=== PATIENT | female | born 1980 | race Caucasian/White ===

== ENCOUNTER 2023-07-21 10:41 | Emergency (ER) | payer OTHER, SELFPAY ==
--- NOTE | 2023-07-21 10:44 | ED.URI ---
HPI - URI/Sore Throat General Chief Complaint: Upper Respiratory Infection Stated Complaint: Cold symptoms;Fever Time Seen by Provider: 07/21/23 10:43 Source: patient Mode of arrival: ambulatory Limitations: no limitations History of Present Illness HPI Narrative: Patient is a 43-year-old female who presents with worsening sinus congestion and pressure along with ear fullness and persistent cough. Patient states symptoms have been present for 3-4 weeks. Patient has tried multiple eved-svm-fgcdaen medications with no relief. Denies any fever, chills, nausea, vomiting, diarrhea or sore throat. Related Data Home Medications Medication Instructions Recorded Confirmed buspirone 15 mg tablet 15 mg PO BID 07/21/23 07/21/23 escitalopram oxalate 10 mg tablet 10 mg PO DAILY 07/21/23 07/21/23 Allergies Allergy/AdvReac Type Severity Reaction Status Date / Time Sulfa (Sulfonamide Allergy Intermediate Blister Unverified 07/21/23 10:52 Antibiotics) Review of Systems Review of Systems: All systems reviewed & are unremarkable except as noted in HPI and below Constitutional: Constitutional: Denies body ache(s), Denies chills, Denies fatigue, Denies fever(s), Denies headache(s), Denies malaise and Denies weakness Eyes: Eyes: Denies blurry vision, Denies itchy eyes and Denies loss of vision ENT: Denies otalgia, Denies headache(s), Reports nasal congestion, Denies sinus pain, Reports sinus pressure and Denies sore throat Cardiovascular: Cardiovascular: Denies chest pain, Denies irregular heart rhythm and Denies dyspnea Respiratory: Respiratory: Reports cough and Denies dyspnea Gastrointestinal: Gastrointestinal: Denies abdominal pain, Denies diarrhea, Denies nausea and Denies vomiting Musculoskeletal: Musculoskeletal: Denies back pain, Denies myalgias and Denies arthralgias Integumentary/Breasts: Skin/Breast: Denies pruritus and Denies rash Neurologic: Denies headache(s), Denies loss of vision and Denies weakness Psychiatric: Psychiatric: Reports no additional psychiatric complaints Endocrine: Endocrine: Denies fatigue Allergic/Immunologic: Allergic/Immunologic: Denies itchy eyes PMFSH Comments At time of signature, agree with nursing past medical, surgical, social and family history. There is no relevant family history pertinent to the presenting complaint. Exam Const: General: cooperative, healthy appearing, comfortable, no acute distress and well nourished Nutritional Appearance: well nourished Orientation/consciousness: patient oriented x3 Limitations: no limitations HENMT: Head: normal to inspection, normocephalic and atraumatic Ears: hearing grossly normal bilaterally, external ears normal, TM's normal bilaterally, EAC's normal and no periauricular adenopathy Face/Nose/Sinus: Normal external nose present, Abnormal mucous membranes and turbinates present erythematous bilateral and diffuse, normal facial exam, face symmetric and Facial tenderness on exam of face and sinuses Face and sinus: normal facial exam and face symmetric Mouth: Yes Normal oral and palatal mucosa present, Yes lip normal, Yes tongue normal, Yes Normal salivary glands and ducts present, Yes oropharynx normal and Yes moist mucous membranes Teeth and gingiva: dentition normal Throat: posterior oropharynx normal, tonsils normal and uvula midline Eyes: General: appearance normal, both eyes and all related structures Alignment and Position: alignment normal and position normal Periorbital: periorbital findings normal Eyelids: eyelids normal Pupils: Equal, round and reactive pupils present Neck: Neck: normal visual inspection, full ROM, no lymphadenopathy and supple Chest: Chest palpation & inspection: normal inspection of the chest and normal palpation of entire chest wall Resp: Effort & Inspection: normal respiratory effort and able to speak in complete sentences Auscultation: clear to auscultation bilaterally, no crackles, no rales, no rhonch
[2023-07-21 10:53] VITALS: BP 127/79; PULSE 66; RESP 16; TEMP 37; O2SAT 100
== END 2023-07-21 11:25 | disposition home or self-care (01) ==
PROVIDERS: Emergency Provider Nurse Practitioner Family
DX: J06.9 Acute upper respiratory infection, unspecified (principal); R05.9 Cough, unspecified
CPT/HCPCS: 99203; G0463

== ENCOUNTER 2024-07-12 12:40 | Emergency (ER) | payer OTHER, SELFPAY ==
--- NOTE | ~2024-07-12 | XR_ITS ---
XR ankle LT min 3V Ordering provider: Adelaide Zacarias NP History: . pain and swelling L ankle . Comparison: None. FINDINGS: BONES: No acute fracture or dislocation. JOINT SPACES: The ankle mortise is normal. SOFT TISSUES: Normal. IMPRESSION: No acute osseous abnormality left ankle. Reviewed, dictated and finalized at location A. [employer] REPRESENT[employer]IVE
[2024-07-12 13:18] VITALS: BP 121/92; PULSE 74; RESP 16; TEMP 36.3; O2SAT 99
--- NOTE | 2024-07-12 13:49 | ED_ITS ---
HPI - Extremity Injury (Lower) General Chief Complaint: Extremity Injury, Lower Stated Complaint: INJURED L ANKLE Time Seen by Provider: 07/12/24 13:49 Source: patient Mode of arrival: ambulatory Limitations: no limitations History of Present Illness HPI Narrative: 44-year-old female presents with complaint of pain to left ankle. Patient reports injury doing in [employer] class 1 week ago. Reports that she felt ankle pop and snap. Has been wearing ankle brace at home. States left ankle feels weak, continues to have pain. Range of motion and distal neurovascularly intact. All systems reviewed and negative except as noted above. Related Data Home Medications Medication Instructions Recorded Confirmed buspirone 15 mg tablet 15 mg PO BID 07/21/23 07/12/24 spironolactone 100 mg tablet 100 mg PO DAILY 07/12/24 07/12/24 Allergies Allergy/AdvReac Type Severity Reaction Status Date / Time Sulfa (Sulfonamide Allergy Intermediate Blister Unverified 07/12/24 13:14 Antibiotics) Review of Systems Review of Systems: CONSTITUTIONAL: Denies fever, chills, or sweats. EYES: Denies visual changes, redness, or discharge. ENT: Denies rhinorrhea, congestion, sore throat, or otalgia. CARDIOVASCULAR: Denies chest pain, palpitations, or edema. RESPIRATORY: Denies cough or dyspnea. GASTROINTESTINAL: Denies abdominal pain, nausea, vomiting, or diarrhea. GENITOURINARY: Denies dysuria or hematuria. SKIN: Denies rash or itching. MUSCULOSKELETAL: reports pain and swelling to L ankle NEUROLOGIC: Denies headache, numbness, or weakness. PSYCHIATRIC: Denies anxiety or depression. All other systems reviewed are negative, except as documented in HPI. PMFSH Comments At time of signature, agree with nursing past medical, surgical, social and fam sj history. There is no relevant family history pertinent to the presenting complaint. Exam Narrative: GENERAL: This is a well-nourished, well-developed patient, in no apparent distress. HEAD: normocephalic, atraumatic. EYES: PERRL. Sclera clear/white. Vision is grossly intact. EARS: External ears normal NOSE: External nose normal NECK: Neck supple, non-tender without lymphadenopathy, masses or thyromegaly. CARDIOVASCULAR: Regular rate and rhythm without murmurs, gallops, or rubs. RESPIRATORY: Clear to auscultation. Breath sounds equal bilaterally. No wheezes, rales, or rhonchi. SKIN: warm, Dry, intact with no suspicious lesions or rash, good texture and turgor. NEURO: awake, alert, and oriented to person, place and time. There were no obvious focal neurologic abnormalities. EXTREMITIES: Bruising and swelling to lateral aspect left ankle. tenderness to L ATFL. ROM and distal NV intact. No instability. Course Course Level of Care: Express Care Visit Vital Signs Vital signs: Vital Signs Temperature 36.3 C L 07/12/24 13:18 Pulse Rate 74 07/12/24 13:18 Respiratory Rate 16 07/12/24 13:18 Blood Pressure 121/92 H 07/12/24 13:18 Pulse Oximetry 99 07/12/24 13:18 Temperature 36.3 C L 07/12/24 13:18 Pulse Rate 74 07/12/24 13:18 Respiratory Rate 16 07/12/24 13:18 Blood Pressure 121/92 H 07/12/24 13:18 Pulse Oximetry 99 07/12/24 13:18 Reviewed MDM - Extremity Injury (Lower) MDM Narrative Medical decision making narrative: X-ray negative for fracture. Discussed results with patient. When she continue wearing ankle brace. Elevate, rest. Follow-up with PCP if pain not improving. Patient is aware of diagnosis, understands and agrees to treatment plan. Anticipatory guidance given. Patient agrees to follow-up as directed and is aware of reasons to seek care at the emergency department. Portions of this record may have been created with voice recognition software Differential Diagnosis Differential diagnosis: Likely ankle sprain and strain and ankle fracture Imaging Data My impression: Agree with radiologist Radiologist's impression: XR ankle LT min 3V Ordering provider: Adelaide Zacarias NP History: . pain and swelling L ankle . Comparison: None. FINDINGS: BONES: No acute fracture or dislocation. JOINT SPACES: The ankle mortise is normal. SOFT TISSUES: Normal. IMPRESSION: No acute osseous abnormality left ankle. Discharge Plan Discharge Clinical Impression: Left ankle sprain Qualifiers: Encounter type: initial encounter Involved ligament of ankle: unspecified ligament Qualified Code(s): S93.402A - Sprain of unspecified ligament of left ankle, initial encounter Patient Disposition: Home, Self-Care Condition: Stable Instructions: Antibiotic Form, Ankle Sprain (ED) Additional Instructions: The x-ray of your left ankle was negative for fracture. Take ibuprofen or Tylenol every 6-8 hours as needed for pain. Continue to wear ankle brace for support. Elevate when at rest. Avoid activities that increase pain to left ankle. If pain not improving in the next 2-3 weeks follow-up with your primary care physician. If your ankle is feeling weak or unstable you may need an MRI. Prescriptions: No Action buspirone 15 mg tablet 15 mg PO BID (DME) Philip MV Spacer See Rx Instructions .Route Qty: 1 0RF Rx Instructions: As directed spironolactone 100 mg tablet 100 mg PO DAILY Follow-up/Referrals: [facility], [Primary Care Provider] - Time of Disposition: 14:20
== END 2024-07-12 14:23 | disposition home or self-care (01) ==
PROVIDERS: Emergency Provider Nurse Practitioner Family
DX: S93.402A Sprain of unspecified ligament of left ankle, initial encounter (principal); X58.XXXA Exposure to other specified factors, initial encounter; Y93.75 Activity, martial arts
CPT/HCPCS: 73610; 99213; G0463

== ENCOUNTER 2024-10-17 18:33 | Emergency (ER) | payer OTHER, SELFPAY ==
--- NOTE | 2024-10-17 18:34 | ED.DENTAL ---
HPI - Dental/Oral General Chief complaint: Dental/Oral Stated complaint: Tooth Pain Time Seen by Provider: 10/17/24 18:34 Source: patient Mode of arrival: ambulatory Limitations: no limitations History of Present Illness HPI Narrative: Marissa is a 44-year-old female patient presenting to the clinic today with complaints of left upper gum/sinus/dental pain x2 3 days. She reports she was sick last week and thinks she may have a sinus infection but she is having a lot of pain to the left upper gums and dental pain. Denies any fevers, chills, or body aches. Has been applying Orajel to the affected area that alleviating some pain. Has been taking Tylenol Motrin that has not helped her pain. Related Data Home Medications ?Medication ?Instructions ?Recorded ?Confirmed ?Last Taken ?Type buspirone 15 mg tablet 15 mg PO BID 07/21/23 07/12/24 Unknown History spironolactone 100 mg tablet 100 mg PO DAILY 07/12/24 07/12/24 Unknown History Allergies Allergy/AdvReac Type Severity Reaction Status Date / Time Sulfa (Sulfonamide Allergy Intermediate Blister Unverified 07/12/24 13:14 Antibiotics) Review of Systems Review of Systems: Pertinent positives per HPI. Patient denies any fever, chills, rash, headache, visual changes, dizziness, cough, runny nose, sore throat, shortness of breath, chest pain, palpitations, nausea, vomiting, diarrhea, constipation, abdominal pain, or any urinary issues. PMFSH Comments At the time of my signature, I reviewed and agree with the nursing past medical, surgical, social, and family history. There is no relevant family history pertinent to the patient complaint. Exam Narrative: General: Well-developed, well nourished, in no apparent distress Head: Normocephalic, atraumatic Eyes: Pupils equally round and reactive to light bilaterally, EOM intact, sclera and conjunctive clear, no discharge, lids normal Ears: TMs intact and clear, ear canals clear, no drainage, grossly hearing normal. Nose: Nares patent, clear discharge, moderate inflammation, left maxilla sinus tenderness. Mouth: Oropharynx without lesions or masses, good dentition, MMM. Tenderness to palpation over the premolars and molars on the left upper maxilla with mild gingival swelling Neck: Supple, trachea midline, no enlargement of anterior or posterior cervical nodes, no thyroid masses or goiter palpable. Cardio: Regular rate and rhythm, s1 and s2 normal, no murmur appreciated. Resp: Clear to auscultation bilaterally anteriorly and posteriorly, no rhonchi, rales, wheezing or rubs Course Course Emergency Course: Portions of this record may have been created with voice recognition software. Level of Care: Express Care Visit Vital Signs Vital signs: Vital Signs Temperature 36.3 C L 10/17/24 18:42 Pulse Rate 57 L 10/17/24 18:42 Respiratory Rate 18 10/17/24 18:42 Blood Pressure 124/85 10/17/24 18:42 Pulse Oximetry 100 10/17/24 18:42 Temperature 36.3 C L 10/17/24 18:42 Pulse Rate 57 L 10/17/24 18:42 Respiratory Rate 18 10/17/24 18:42 Blood Pressure 124/85 10/17/24 18:42 Pulse Oximetry 100 10/17/24 18:42 Vital signs reviewed MDM - Dental/Oral MDM Narrative Medical decision making narrative: At the time of visit patient is resting comfortably on the exam table. Patient appears to be nontoxic. Plan: I suspect patient has dental pain/probable sinusitis. Prescription for Augmentin was sent to the pharmacy. Supportive measures were discussed with the patient and they voiced understanding discharge instructions and agrees to treatment plan. Return precautions reviewed Differential Diagnosis Differential diagnosis: Likely gingival abscess, dental caries, toothache, dental abscess, fracture of tooth, aphthous ulcer and other (Sinusitis) Discharge Plan Discharge Clinical Impression: Toothache Patient Disposition: Home, Self-Care Condition: Stable Instructions: Antibiotic Form, Toothache (ED) Additional Instructions: May continue applying Orajel to the affected area to help alleviate pain Continue Tylenol/Motrin as needed for pain Take Augmentin as prescribed May apply cool or warm compress to the affected area to help alleviate pain Follow-up with your dentist as soon as possible Patient Language: Taiwanese Prescriptions: New amoxicillin-pot clavulanate 875-125 mg tablet 1 tablet PO Q12H 10 Days Qty: 20 0RF No Action buspirone 15 mg tablet 15 mg PO BID (DME) Aerochamber MV Spacer See Rx Instructions .Route Qty: 1 0RF Rx Instructions: As directed spironolactone 100 mg tablet 100 mg PO DAILY Follow-up/Referrals: UNKNOWN,DOCTOR [Non-Staff] - Time of Disposition: 18:44 Quality NIHSS Nursing Documentation ED NIHSS nursing documentation: reviewed/agree
[2024-10-17 18:42] VITALS: BP 124/85; PULSE 57; RESP 18; TEMP 36.3; O2SAT 100
== END 2024-10-17 18:52 | disposition home or self-care (01) ==
PROVIDERS: Emergency Provider Nurse Practitioner Family
DX: K08.89 Other specified disorders of teeth and supporting structures (principal)
CPT/HCPCS: 99213; G0463

== ENCOUNTER 2024-10-24 10:06 | Emergency (ER) | payer OTHER, SELFPAY ==
[2024-10-24 10:17] VITALS: BP 126/87; PULSE 65; RESP 16; TEMP 36.7; O2SAT 100
--- NOTE | 2024-10-24 10:22 | ED_ITS ---
HPI - General Adult General Chief complaint: Dental/Oral Stated complaint: facial pain/pressure Time Seen by Provider: 10/24/24 10:22 Source: patient Mode of arrival: ambulatory Limitations: no limitations History of Present Illness HPI narrative: 44-year-old female patient presents to the [facility] with complaints of left- sided facial pain. Patient states she was seen in the urgent care last week and was diagnosed and treated as a sinus infection with Augmentin. Patient states that the pain to the left cheek area has not gotten any better. Patient states that it almost feels like a nerve pain and itch goes from her left ear and shoots down her cheek. Patient states it can come and go intermittently. Denies fevers, body aches or chills. Patient states she has about 2 days left of the Augmentin. Patient states she was not given steroids at the time of treatment last weekend. Related Data Home Medications ?Medication ?Instructions ?Recorded ?Confirmed ?Last Taken ?Type buspirone 15 mg tablet 15 mg PO BID 07/21/23 07/12/24 Unknown History spironolactone 100 mg tablet 100 mg PO DAILY 07/12/24 07/12/24 Unknown History Allergies Allergy/AdvReac Type Severity Reaction Status Date / Time Sulfa (Sulfonamide Allergy Intermediate Blister Unverified 10/24/24 10:17 Antibiotics) Review of Systems Review of Systems: CONSTITUTIONAL: Denies fever, chills, or sweats. EYES: Denies visual changes, redness, or discharge. ENT: Denies rhinorrhea, congestion, sore throat, or otalgia. Positive left- sided facial pain from the ear across to the cheek. CARDIOVASCULAR: Denies chest pain, palpitations, or edema. RESPIRATORY: Denies cough or dyspnea. GASTROINTESTINAL: Denies abdominal pain, nausea, vomiting, or diarrhea. GENITOURINARY: Denies dysuria or hematuria. SKIN: Denies rash or itching. MUSCULOSKELETAL: Denies back pain, joint pain, or myalgia. NEUROLOGIC: Denies headache, numbness, or weakness. PSYCHIATRIC: Denies anxiety or depression. [facility] Past Medical History Medical History No significant past medical history Comments At the time of my signature I agree with nursing past medical history, surgical, social, and family history. There is no relevant family history pertinent to the presenting complaint. Exam Narrative: GENERAL: Well-appearing, well-nourished, and in no acute distress. HEAD: Normocephalic, atraumatic. EYES: PERRLA and EOMI. ENT: Nares clear, no rhinorrhea or epistaxis. Mucous membranes moist. Posterior pharynx with no erythema, tonsillar enlargement or exudates noted. No abno rmalities or obvious evidence of an infection to the palate or dental area of the mouth. Bilateral TMs are clear no erythema or foreign bodies the canal. No pain to the TMJ area on exam. NECK: Supple. No lymphadenopathy CHEST: Clear to auscultation. No respiratory distress. HEART: Regular rate and rhythm. No murmur heard. Normal peripheral pulses. ABDOMEN: Soft, nontender, nondistended, normal active bowel sounds. EXTREMITIES: Normal range of motion. No edema. SKIN: Warm, dry, no rash. NEURO: Alert and oriented x4, GCS 15. Cranial nerves II through XII grossly intact. No focal neurological deficits. Normal muscle strength and tone. Normal deep tendon reflexes. Negative Babinski, normal finger to nose coordination he had normal heel to saul glide. Speech is clear. Normal gait. Negative Romberg and no pronator drift Course Course Level of Care: Express Care Visit Vital Signs Vital signs: Vital Signs Temperature 36.7 C 10/24/24 10:17 Pulse Rate 65 10/24/24 10:17 Respiratory Rate 16 10/24/24 10:17 Blood Pressure 126/87 10/24/24 10:17 Pulse Oximetry 100 10/24/24 10:17 Temperature 36.7 C 10/24/24 10:17 Pulse Rate 65 10/24/24 10:17 Respiratory Rate 16 10/24/24 10:17 Blood Pressure 126/87 10/24/24 10:17 Pulse Oximetry 100 10/24/24 10:17 vital signs reviewed. Medical Decision Making MDM Narrative Medical decision making narrative: Discussed with patient that this could possibly be a trigeminal neuralgia or leftover inflammation due to any sinus infection that was treated. Discussed with her that we will go ahead and give her some steroids today to see if this improves the pain but I would highly recommend that she follow-up with her doctor and possibly a neurologist if this pain continues. Patient verbalized understanding denies any other questions or concerns at this time. Differential Diagnosis Differential Diagnosis: Differential diagnosis: Dental caries, periodontal disease, avulsed tooth, tooth infections, mandibular infection, Hermann's angiana, upper tooth infection, dry socket, gingivitis, acute necrotizing ulcerative gingivitis, sialolithiasis. Migraine, cluster headache, tension headache, sinusitis, dental infection, TMJ problems, pseudotumor cerebri, meningitis, encephalitis, giant cell arteritis, glaucoma, subarachnoid hemorrhage, subdural or epidural hematoma, intracranial bleed or tumor. Vital Signs Vital Signs: Vital Signs Temperature 36.7 C 10/24/24 10:17 Pulse Rate 65 10/24/24 10:17 Respiratory Rate 16 10/24/24 10:17 Blood Pressure 126/87 10/24/24 10:17 Pulse Oximetry 100 10/24/24 10:17 Temperature 36.7 C 10/24/24 10:17 Pulse Rate 65 10/24/24 10:17 Respiratory Rate 16 10/24/24 10:17 Blood Pressure 126/87 10/24/24 10:17 Pulse Oximetry 100 10/24/24 10:17 Critical Care Time Critical Care Time Critical Care Time: No Discharge Plan Discharge Clinical Impression: Left-sided face pain, Neuralgia Patient Disposition: Home, Self-Care Condition: Stable Instructions: Antibiotic Form, Trigeminal Neuralgia (ED) Additional Instructions: Trigeminal neuralgia is a problem with the large nerve that brings feeling to your face. It causes a sudden, sharp pain on one side of your face. Just touching your cheek or talking can set off shooting pain toward the ear, eye, or nostril. Some people have long periods when they do not have pain, and then it comes back. Some people have periods of pain often. But medicine or other treatment often can make the pain go away. If you keep having pain, surgery may help. Follow-up care is a parsons part of your treatment and safety.?Be sure to make and go to all appointments, and call your doctor or nurse advice line ([phone]?in most provinces and territories) if you are having problems. It's also a good idea to know your test results and keep a list of the medicines you take. How can you care for yourself at home? Write down when you have pain and what you were doing when it started. Try to find what causes the pain. Being in a cold wind, yawning, or shaving are examples. Avoid or limit these triggers if you can.Be safe with medicines. Take your medicines exactly as prescribed. Call your doctor or nurse advice line if you think you are having a problem with your medicine. You will get more details on the specific medicines your doctor prescribes. If you are not taking a prescription pain medicine, take an zviv-lir-vkwccuu medicine such as acetaminophen (Tylenol), ibuprofen (Advil, Motrin), or naproxen (Aleve). Read and follow all instructions on the label. Do not take two or more pain medicines at the same time unless the doctor told you to. Many pain medicines have acetaminophen, which is Tylenol. Too much acetaminophen (Tylenol) can be harmful.Reduce stress in your life. Ask your doctor about ways to relax. These may include breathing exercises and massage.Think about joining a support group with other people who have this problem. These groups can give comfort and information about what to do to feel better. Patient Language: [place] Prescriptions: New prednisone 10 mg tablets,dose pack See Rx Instructions .ROUTE .COMPLEX Qty: 48 0RF Rx Instructions: 50 mg x 3 days, 40 mg x 3 days, 30 mg x 3 days, 20 mg x 3 days, 10 mg x 3 days No Action buspirone 15 mg tablet 15 mg PO BID (DME) Aerochamber MV Spacer See Rx Instructions .Route Qty: 1 0RF Rx Instructions: As directed amoxicillin-pot clavulanate 875-125 mg tablet 1 tablet PO Q12H 10 Days Qty: 20 0RF spironolactone 100 mg tablet 100 mg PO DAILY Follow-up/Referrals: [place], [Primary Care Provider] - Time of Disposition: 10:32
== END 2024-10-24 10:34 | disposition home or self-care (01) ==
PROVIDERS: Emergency Provider Nurse Practitioner Family
DX: G50.1 Atypical facial pain (principal); M79.2 Neuralgia and neuritis, unspecified
CPT/HCPCS: 99213; G0463

== ENCOUNTER 2025-01-11 08:04 | Emergency (ER) | payer OTHER, SELFPAY ==
--- NOTE | 2025-01-11 08:06 | ED.URI ---
HPI - URI/Sore Throat General Chief Complaint: Upper Respiratory Infection Stated Complaint: Sinus Infection Symptoms Time Seen by Provider: 01/11/25 08:18 Source: patient, RN notes reviewed and old records reviewed Mode of arrival: ambulatory Limitations: no limitations History of Present Illness HPI Narrative: 45-year-old female presents to the [facility] with his runny nose, sinus pain, pressure for 10 days. States she has tried Motrin and Benadryl. Left pressure is greater than right. Onset (ago): day(s) (10+) Related Data Home Medications ?Medication ?Instructions ?Recorded ?Confirmed ?Last Taken ?Type buspirone 15 mg tablet 15 mg PO BID 07/21/23 07/12/24 Unknown History spironolactone 100 mg tablet 100 mg PO DAILY 07/12/24 07/12/24 Unknown History Allergies Allergy/AdvReac Type Severity Reaction Status Date / Time Sulfa (Sulfonamide Allergy Intermediate Blister Unverified 10/24/24 10:17 Antibiotics) Review of Systems Review of Systems: All systems reviewed & are unremarkable except as noted in HPI and below Constitutional: Constitutional: Reports no additional constitutional complaints ENT: Reports as per HPI, Reports sinus pain and Reports sinus pressure Cardiovascular: Cardiovascular: Reports no additional cardiovascular complaints, Denies chest pain and Denies dyspnea Respiratory: Respiratory: Reports no additional respiratory complaints, Denies chest congestion, Denies cough and Denies dyspnea Musculoskeletal: Musculoskeletal: Reports no additional musculoskeletal complaints Integumentary/Breasts: Skin/Breast: Reports system reviewed and no additional complaints, except as docu PMFSH Past Medical History Medical History No significant past medical history Comments At the time of my signature, I reviewed and agree with the nursing past medical, surgical, social, and family history. There is no relevant family history pertinent to the patient complaint. Exam Const: General: cooperative, healthy appearing, comfortable, no acute distress, well developed, alert and well nourished Nutritional Appearance: well nourished Orientation/consciousness: patient oriented x3 Limitations: no limitations HENMT: Head: normal to inspection Ears: hearing grossly normal bilaterally, external ears normal and TM abnormal bulging on the left and erythematous on the left Face/Nose/Sinus: Normal external nose present, Nasal discharge present clear, normal facial exam, face symmetric, No ecchymosis, No erythema and sinus tenderness (Left maxillary frontal) Mouth: Yes Normal oral and palatal mucosa present, Yes lip normal, Yes tongue normal and Yes moist mucous membranes Teeth and gingiva: dentition normal Throat: posterior oropharynx normal, uvula midline and no uvular edema Eyes: General: appearance normal, both eyes and all related structures Alignment and Position: alignment normal Neck: Neck: normal visual inspection, full ROM, no lymphadenopathy and no meningeal signs Chest: Chest palpation & inspection: normal inspection of the chest Resp: Effort & Inspection: normal respiratory effort and able to speak in complete sentences Auscultation: clear to auscultation bilaterally, no crackles, no rales, no rhonchi and no wheezes Cardio: Rate: regular rate Skin: General skin exam: normal color and no rashes or lesions noted Neuro: General: patient oriented x3, gait normal, moves all extremities and no meningeal signs Cognition (Neuro): normal cognition Speech: normal speech Gait exam (Neuro): Normal gait present Extrem: General: normal to inspection, full ROM, capillary refill normal and normal gait Psych: Appearance: grossly normal and well kempt Mental Status: mental status grossly normal Speech and movement: Normal speech and movement present and Clear speech present Affect: normal affect Attitude: cooperative Course Course Level of Care: Express Care Visit Vital Signs Vital signs: Vital Signs Temperature 97.9 F 01/11/25 08:12 Pulse Rate 68 01/11/25 08:12 Respiratory Rate 16 01/11/25 08:12 Blood Pressure 115/82 01/11/25 08:12 Pulse Oximetry 100 01/11/25 08:12 Oxygen Delivery Room Air 01/11/25 08:12 Temperature 97.9 F 01/11/25 08:12 Pulse Rate 68 01/11/25 08:12 Respiratory Rate 16 01/11/25 08:12 Blood Pressure 115/82 01/11/25 08:12 Pulse Oximetry 100 01/11/25 08:12 Oxygen Delivery Room Air 01/11/25 08:12 Reviewed MDM - URI/Sore Throat MDM Narrative Medical decision making narrative: Patient sitting in exam. Patient is nontoxic, vitals are stable. Patient presents with 10 day history of URI symptoms. Erythema noted to left TM, pain pressure increasing to the left sinus both frontal and maxillary. Patient is appropriate for outpatient treatment with close follow-up. Discharge instructions reviewed with patient, as well as provided in writing per nursing staff. The instructions also include specific and strict return/GO TO THE ER as well as f/u information. All questions have been answered, and the patient deny any further questions with discharge and discharge plan. Some parts of this dictation were generated by voice recognition software and may contain typographical and/or grammatical inaccuracies. Differential Diagnosis Differential diagnosis: Likely upper respiratory infection, otitis media, sinusitis, viral infection, bronchitis, influenza and pharyngitis Critical Care Time Critical Care Time Critical Care Time: No Discharge Plan Discharge Clinical Impression: Acute left otitis media Sinusitis Qualifiers: Sinusitis location: unspecified location Chronicity: acute Recurrence: not specified as recurrent Qualified Code(s): J01.90 - Acute sinusitis, unspecified Patient Disposition: Home Condition: Stable Instructions: Antibiotic Form, Sinusitis (ED), Ear Infection (ED) Additional Instructions: It is very important to treat your symptoms. Drink plenty of water, Gatorade, Pedialyte, ice pops or Jell-O. -Alternate Tylenol and Motrin per package directions for fever or pain. You can alternate every 4 hours -Antihistamine medication such as Zyrtec/Claritin/Nicole during the day can help improve symptoms. -doing daily nasal irrigations can help relieve pressure your sinuses. Things like a Neti pot -Use Flonase twice a day for 5 days then daily to help reduce the inflammation and dry up your sinuses. -You can also use Mucinex. Be sure to drink plenty of water with this medication at least 8 ounces with every dose and it is important to drink 8 to 10 glasses of water per day. Water is a natural decongestant -Frequent hand washing or hand motor and chassis inspector is one of the best ways to prevent spread of infection. -Using a vaporizer or humidifier at night will also help thin secretions and help with coughing up phlegm. -Follow up with primary care provider in 7-10 days if condition is not improving -For new or worsening symptoms go directly to the nearest ER Patient Language: Malay Prescriptions: New amoxicillin-pot clavulanate 875-125 mg tablet 1 tablet PO Q12H Qty: 20 0RF No Action buspirone 15 mg tablet 15 mg PO BID (DME) Aerochamber MV Spacer See Rx Instructions .Route Qty: 1 0RF Rx Instructions: As directed spironolactone 100 mg tablet 100 mg PO DAILY Follow-up/Referrals: [facility] - GILLETTE BASE, [Primary Care Provider] - Stand Alone Forms: Work/School Release IP Time of Disposition: 08:26
[2025-01-11 08:12] VITALS: BP 115/82; PULSE 68; RESP 16; TEMP 36.6; O2SAT 100
== END 2025-01-11 08:28 | disposition home or self-care (01) ==
PROVIDERS: Emergency Provider Nurse Practitioner
DX: H66.92 Otitis media, unspecified, left ear (principal); J01.90 Acute sinusitis, unspecified
CPT/HCPCS: 99213; G0463

== ENCOUNTER 2025-02-23 08:30 | Emergency (ER) | payer OTHER, SELFPAY ==
[2025-02-23 08:42] VITALS: BP 127/98; PULSE 59; RESP 16; TEMP 36.3; O2SAT 100
--- NOTE | 2025-02-23 08:45 | ED_ITS ---
HPI - URI/Sore Throat General Chief Complaint: Upper Respiratory Infection Stated Complaint: SINUS Time Seen by Provider: 02/23/25 08:45 Source: patient Mode of arrival: ambulatory Limitations: no limitations History of Present Illness HPI Narrative: 45-year-old female presents with complaint of sinus congestion, pressure for the past 2-3 weeks. Patient reports this is her 3rd sinus infection in the last 6 months. Started Claritin when symptoms started. Also using Afrin at night. Afebrile. No chest pain or shortness of breath. All systems reviewed and negative except as noted above. Related Data Home Medications ?Medication ?Instructions ?Recorded ?Confirmed ?Last Taken ?Type buspirone 15 mg tablet 15 mg PO BID 07/21/23 02/23/25 Unknown History spironolactone 100 mg tablet 100 mg PO DAILY 07/12/24 02/23/25 Unknown History progesterone micronized 100 mg 100 mg PO QPM 02/23/25 02/23/25 Unknown History capsule Allergies Allergy/AdvReac Type Severity Reaction Status Date / Time Sulfa (Sulfonamide Allergy Intermediate Blister Unverified 02/23/25 08:39 Antibiotics) Review of Systems Review of Systems: CONSTITUTIONAL: Denies fever, chills, or sweats. EYES: Denies visual changes, redness, or discharge. ENT: Reports rhinorrhea, congestion, sinus pressure, postnasal drainage. Denies sore throat, or otalgia. CARDIOVASCULAR: Denies chest pain, palpitations, or edema. RESPIRATORY: Denies cough or dyspnea. GASTROINTESTINAL: Denies abdominal pain, nausea, vomiting, or diarrhea. GENITOURINARY: Denies dysuria or hematuria. SKIN: Denies rash or itching. MUSCULOSKELETAL: Denies back pain, joint pain, or myalgia. NEUROLOGIC: Denies headache, numbness, or weakness. PSYCHIATRIC: Denies anxiety or depression. All other systems reviewed are negative, except as documented in HPI. PMFSH Past Medical History Medical History No significant past medical history Comments At time of signature, agree with nursing past medical, surgical, social and family history. There is no relevant family history pertinent to the presenting complaint. Exam Narrative: GENERAL: This is a well-nourished, well-developed patient, in no apparent distress. HEAD: normocephalic, atraumatic. EYES: PERRL. Sclera clear/white. Vision is grossly intact. EARS: External ears normal, auditory canals clear and without drainage, TMs nor mal without perforation. Hearing grossly intact. NOSE: External nose normal with congestion, purulent nasal drainage, erythema to nares. Frontal sinus tenderness bilaterally on palpation THROAT: Mucous membranes moist, erythema postnasal drainage. No swelling or exudates. NECK: Neck supple, non-tender without lymphadenopathy, masses or thyromegaly. CARDIOVASCULAR: Regular rate and rhythm without murmurs, gallops, or rubs. RESPIRATORY: Clear to auscultation. Breath sounds equal bilaterally. No wheezes, rales, or rhonchi. SKIN: warm, Dry, intact with no suspicious lesions or rash, good texture and turgor. NEURO: awake, alert, and oriented to person, place and time. There were no obvious focal neurologic abnormalities. EXTREMITIES: No joint tenderness, effusion, or edema noted. Course Course Level of Care: Express Care Visit Vital Signs Vital signs: Vital Signs Temperature 36.3 C L 02/23/25 08:42 Pulse Rate 59 L 02/23/25 08:42 Respiratory Rate 16 02/23/25 08:42 Blood Pressure 127/98 H 02/23/25 08:42 Pulse Oximetry 100 02/23/25 08:42 Temperature 36.3 C L 02/23/25 08:42 Pulse Rate 59 L 02/23/25 08:42 Respiratory Rate 16 02/23/25 08:42 Blood Pressure 127/98 H 02/23/25 08:42 Pulse Oximetry 100 02/23/25 08:42 Reviewed MDM - URI/Sore Throat MDM Narrative Medical decision making narrative: pt well appearing, nontoxic. will treat for bacterial sinusitis due to duration of symptoms and exam findings. pt agrees with plan of care. Differential Diagnosis Differential diagnosis: Likely upper respiratory infection, sinusitis, viral infection and influenza Discharge Plan Discharge Clinical Impression: Acute bacterial sinusitis Patient Disposition: Home Condition: Stable Instructions: Antibiotic Form, Sinusitis (ED) Additional Instructions: Take antibiotic as prescribed until gone. Take an [id number] antihistamine daily such as Claritin or Zyrtec. Use a nasal spray daily such as Flonase or Nasacort. Drink at least 64 oz of water a day. See your doctor if symptoms are not improving. Patient Language: French Prescriptions: New amoxicillin-pot clavulanate 875-125 mg tablet 1 tablet PO Q12H 7 Days Qty: 14 0RF No Action buspirone 15 mg tablet 15 mg PO BID (DME) Aerkaroline MV Spacer See Rx Instructions .Route Qty: 1 0RF Rx Instructions: As directed spironolactone 100 mg tablet 100 mg PO DAILY progesterone micronized 100 mg capsule 100 mg PO QPM Follow-up/Referrals: KILAUEA, [Primary Care Provider] - Time of Disposition: 08:53
== END 2025-02-23 08:57 | disposition home or self-care (01) ==
PROVIDERS: Emergency Provider Nurse Practitioner Family
DX: J01.90 Acute sinusitis, unspecified (principal)
CPT/HCPCS: 99213; G0463